=== PATIENT | male | born 1965 | race Caucasian/White ===

== ENCOUNTER 2020-04-04 19:13 | Emergency (ER) | payer OTHER, SELFPAY ==
[2020-04-04 19:22] VITALS: BP 136/65; PULSE 67; RESP 20; TEMP 36.7; O2SAT 99
--- NOTE | 2020-04-04 19:33 | ED.GENADULT ---
HPI - General Adult General Chief complaint: Skin/Abscess/Foreign Body Stated complaint: Abcess Time Seen by Provider: 04/04/20 19:33 Source: patient and RN notes reviewed Mode of arrival: ambulatory Limitations: no limitations History of Present Illness HPI narrative: 54-year-old male presents with complaints of RT upper dental pain and swelling to RT upper cheek for 1 day. No treatment. Maninder says he had contact his PMD today and been awaiting return call until he arrived to [facility], came in due to increase face swelling. Denies any drainage. No fever. RT jaw swelling. No neck swelling. No limitation with speaking or swallowing. Has history of dental caries. No dental trauma. No oral lesions. Exacerbating factors consist of eating and drinking cold items. Relieving factors avoiding cold items. No dentures or bridges. Tolerating liquids well. The patient reports he have not been diagnosed with COVID-19. The patient reports he is not waiting for the results of a COVID-19 lab test. The patient reports he do not have fever, chills, weakness, fatigue, or myalgia. The patient reports he do not have a new or worsening cough or shortness of breath. Denies chest pain. The patient reports he do not have any rhinorrhea, congestion, sore throat, nausea, vomiting, abdominal pain, and diarrhea. Denies recent traveling. Denies concerns for COVID-19 or exposures been home with limited outdoor exposure except for essential household needs and return home. At this time, patient is not suspected of having COVID-19. Some parts of this dictation were generated by voice recognition software and may contain typographical and/or grammatical inaccuracies. Related Data Home Medications Medication Instructions Recorded Confirmed albuterol sulfate [ProAir HFA] 2 puff INHALATION QID 04/04/20 04/04/20 atorvastatin 40 mg PO DAILY 04/04/20 04/04/20 budesonide-formoterol [Symbicort] 2 puff INHALATION Q12H 04/04/20 04/04/20 hydrocodone-acetaminophen 1 tablet PO Q4H PRN 04/04/20 04/04/20 lisinopril [Zestril] 5 mg PO DAILY 04/04/20 04/04/20 omeprazole 40 mg PO DAILY 04/04/20 04/04/20 tizanidine 4 mg PO HS 04/04/20 04/04/20 Allergies Allergy/AdvReac Type Severity Reaction Status Date / Time No Known Allergies Allergy Verified 04/04/20 19:35 Review of Systems Review of Systems: Narrative: CONSTITUTIONAL: Denies fever, chills, sweats. EYES: Denies visual changes, redness, discharge. ENT: Denies rhinorrhea, congestion, sore throat, otalgia. Complains of RT upper dental pain and RT jaw swelling. CARDIOVASCULAR: Denies chest pain, palpitations, edema. RESPIRATORY: Denies dyspnea, wheezing, cough. GASTROINTESTINAL: Denies abdominal pain, nausea, vomiting, diarrhea. GENITOURINARY: Denies dysuria, hematuria, abnormal discharge. SKIN: Denies rash or itching. MUSCULOSKELETAL: Denies acute back pain, joint pain, or myalgia. NEUROLOGIC: Denies numbness or focal weakness. PSYCHIATRIC: Denies anxiety or depression. All systems reviewed & are unremarkable except as noted in HPI and below. [facility] Past Medical History Medical History (Updated 04/05/20 @ 00:00 by Purple Binder Daemtremayne) Bilateral inguinal hernia Broken back Compressed L1-3 fracture or TLS0 4-year and a half COPD (chronic obstructive pulmonary disease) History of gastroesophageal reflux (GERD) Hypercholesteremia Hypertension Stenosis of artery of left lower extremity Stent placed Surgical History Surgical History (Updated 04/04/20 @ 19:47 by CHANEL Coyle) History of hernia surgery Bilateral inguinal hernia repair, 1 in 1964 and other side in 1988 Family History Family History (Updated 04/04/20 @ 19:48 by CHANEL Coyle) Father , 1996 related to Asbestos No problems noted. Mother , 2013 related to intestinal problems No problems noted. Social History Social History (Updated 04/04/20 @ 19:49 by Anatoly Zuniga
== END 2020-04-04 19:54 | disposition home or self-care (01) ==
PROVIDERS: Emergency Provider Nurse Practitioner Family
DX: K04.7 Periapical abscess without sinus (principal); K02.9 Dental caries, unspecified; F17.219 Nicotine dependence, cigarettes, with unspecified nicotine-induced disorders; J44.9 Chronic obstructive pulmonary disease, unspecified; K21.9 Gastro-esophageal reflux disease without esophagitis; E78.00 Pure hypercholesterolemia, unspecified; I10 Essential (primary) hypertension; Z95.820 Peripheral vascular angioplasty status with implants and grafts
CPT/HCPCS: 99203; G0463